=== PATIENT | female | born 1945 | race Caucasian/White ===

== ENCOUNTER 2018-05-27 03:30 | Emergency (ER) | payer OTHER ==
[2018-05-27 04:20] VITALS: BP 158/84
--- NOTE | 2018-05-27 04:31 | EDPHY ---
H & P Stated Complaint: chest incision, sx 05/13 Time Seen by Provider: 05/27/18 03:51 HPI/ROS: Chief Complaint: Surgical site discharge HPI: 73-year-old woman had a skin lesion removed by her director of restaurants on the from her central chest. Patient has had increasing redness and discomfort for the last 3 days. This morning she noticed pus coming from the wound. She has no appointment with her director of restaurants tomorrow but presented for further evaluation. Denies any fevers or chills. No shortness of breath. She has noted redness around the surgical site. No headache. No nausea or vomiting. ROS: 10 point Review of Systems is negative except as noted in the HPI. Social History: No smoking, no alcohol, no recreational drug use Family History: non-contributory Physical Exam: General: Awake, alert, no acute distress Chest: Patient has a 7 cm horizontal incision over her sternum. There is an area of erythema that is 5 cm surrounding the site. There is purulent discharge from the wound. Chest wall is otherwise nontender. Abdomen: Soft and nontender - Personal History Current Tetanus/Diphtheria Vaccine: Yes - Medical/Surgical History Hx Asthma: Yes Hx Chronic Respiratory Disease: No Hx Diabetes: No Hx Cardiac Disease: Yes Hx Renal Disease: No Hx Cirrhosis: No Hx Alcoholism: No Hx HIV/AIDS: No Hx Splenectomy or Spleen Trauma: No Other PMH: blocked valve, QT interval, asthma, hypothyroid, - Social History Smoking Status: Never smoked Constitutional: Initial Vital Signs Temperature (C) 36.5 C 05/27/18 03:32 Heart Rate 109 H 05/27/18 03:32 Respiratory Rate 20 05/27/18 03:32 Blood Pressure 176/91 H 05/27/18 03:32 O2 Sat (%) 96 05/27/18 03:32 O2 Delivery Mode Room Air Allergies/Adverse Reactions: azithromycin Allergy (Verified 05/27/18 03:37) doxycycline Allergy (Verified 05/27/18 03:37) neomycin Allergy (Verified 05/27/18 03:37) Sulfa (Sulfonamide Antibiotics) Allergy (Verified 05/27/18 03:37) Home Medications: Medication Instructions Recorded Align 05/27/18 [place] Allergy 05/27/18 Aspirin 05/27/18 Azelastine 05/27/18 Cephalexin [Keflex (*)] 500 mg PO Q6H #40 cap 05/27/18 Citracal 05/27/18 FOLIC ACID 05/27/18 Glucosamine 05/27/18 Levothyroxine 05/27/18 Magnesium 05/27/18 Montelukast Sodium 05/27/18 Ranitidine HCl 05/27/18 Symbicort 160-4.5 Mcg Inh (*) 05/27/18 Medical Decision Making Procedures: Procedure: Abscess drainage. The patient's abscess was located on the chest wall. I obtained verbal consent from the patient to drain the abscess who was informed about the possibility of bleeding and pain. The patient's incision was open, sutures removed by me. The wound had already dehisced. A large amount of purulent drainage was expressed. I irrigated the wound and placed some packing. The patient tolerated the procedure well. The procedure was performed by myself. ED Course/Re-evaluation: Patient has chest wall abscess at a surgical site incision. A large amount pus was removed. Packing is been placed. She does have a small amount of cellulitis around the incision so I will start her on Keflex. Wound cultures have been sent. She has an appointment with her director of restaurants tomorrow. She has been instructed to return to the emergency department if the redness spreads beyond the marked area, for increasing pain, fevers, or any other concerns. Departure - Departure Disposition: Home, Routine, Self-Care Clinical Impression: Abscess, Cellulitis, Surgical site infection Condition: Good Instructions: Surgical Site Infections (ED), Abscess (ED), Cellulitis (ED) Additional Instructions: Please take her full course of antibiotics. Follow up with her director of restaurants tomorrow as scheduled. Leave the packing in place until your seen by her director of restaurants. Return to the emergency department if the redness spreads beyond the marked area , for increasing pain, fevers, or any other concerns. Referrals: Pedrito Clayton MD [Primary Care Provider] - As per Instructions Prescriptions: Cephalexin [Keflex (*)] 500 mg PO Q6H #40 cap
[2018-05-27] MEDS ORDERED: CEPHALEXIN 500 MG CAP PO ONE (04:33)
== END 2018-05-27 05:04 | disposition home or self-care (01) ==
PROC: 0H95XZZ Drainage of Chest Skin, External Approach (ICD-10-PCS; principal; 2018-05-27)
DX: L02.213 Cutaneous abscess of chest wall (principal); L03.313 Cellulitis of chest wall; T81.4XXA Infection following a procedure, initial encounter

== ENCOUNTER → 2019-03-28 | Outpatient (CLI) | payer OTHER | LOC: BHFA 09:00 | PROVIDERS: ATTEND Internal Medicine Interventional Cardiology | DX: R06.02 Shortness of breath (principal) | CPT/HCPCS: 78452; 93017; A9500; J2785 ==

== ENCOUNTER → 2019-04-21 | Outpatient (CLI) | payer OTHER | LOC: BHFA 14:45 ==